=== PATIENT | male | born 1975 | race Caucasian/White ===

== ENCOUNTER 2022-09-07 08:24 | Observation (INO) | payer OTHER, SELFPAY ==
[2022-09-07] VITALS (17 sets, daily range): BP systolic 91–163; BP diastolic 63–96; PULSE 50–70; RESP 11–18; TEMP 36.1–36.6; O2SAT 90–97; BMI 31.3
--- NOTE | 2022-09-07 08:37 | ECG_ITS ---
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 Measurements Intervals [place] Rate: 62 P: 57 LA: 171 QRS: 55 QRSD: 107 T: 36 QT: 433 QTc: 443 Interpretive Statements SINUS RHYTHM POSSIBLE LEFT ATRIAL ENLARGEMENT [-0.1mV P-WAVE IN V1/V2] No previous ECG available for comparison Electronically Signed On 09-07-2022 17:08:19 CDT by Sigifredo Neumann M.D. [id number] f
--- NOTE | 2022-09-07 08:47 | XR_ITS ---
WS: [id number] Portable AP upright chest, 09/07/2022 Clinical Data: chest pain Comparison: PA and lateral chest, 03/29/2019. Findings: No nodules, masses or effusions are seen. The heart is likely enlarged. The pulmonary vascu larity is not increased. No pneumonia or pneumothorax is seen. XR/XR chest 1V portable [id number] Impression: Cardiomegaly.
[2022-09-07 09:28] LABS: Basophils # 0.1 10^3/uL (0.0-0.1); Basophils % 0.7 %; Eosinophils # 0.4 10^3/uL (0.0-0.8); Eosinophils % 4.4 %; Hematocrit 46.2 % (42.0-52.0); Hemoglobin 15.2 g/dL (11.7-16.6); Lymphocytes # 1.1 10^3/uL (0.8-4.8); Lymphocytes % 12.5 %; Mean Corpuscular HGB Conc 32.9 g/dL (30.0-36.0); Mean Corpuscular Hemoglobin 28.5 pg (28.0-34.0); Mean Corpuscular Volume 86.7 fl (80-94); Mean Platelet Volume 9.9 fL (7.4-10.4); Monocytes # 0.8 10^3/uL (0.2-0.9); Monocytes % 8.9 %; Neutrophils # 6.46 10^3/uL (1.8-7.7); Neutrophils % 73.4 %; Nucleated Red Blood Cells % 0 %; Platelet Count 240 10^3/cmm (130-400); Red Blood Count 5.33 10^6/uL (4.1-5.3); Red Cell Distribution Width 14.1 % (12.1-15.1); White Blood Count 8.8 10^3/uL (4.0-10.0)
--- NOTE | 2022-09-07 09:32 | CT_ITS ---
WS: [id number] CT ABDOMEN AND PELVIS NONCONTRAST HISTORY: Abdominal pain TECHNIQUE: Imaging performed through the abdomen and pelvis. Coronal and sagittal reformats are submi tted. All CT scans at [facility] use at least one of these dose optimization techniques: auto mated exposure control; mA and/or kV adjustment per patient size (includes targeted exams where dose is matched to clinical indication); or iterative reconstruction. DLP: 825.28 mGy.cm COMPARISON: None available. Lower thorax: Dependent changes at the lung bases. Pericardial cyst adjacent to the RIGHT heart measu res 6.0 x 2.2 cm. Normal size heart. Small hiatal hernia. Liver: Normal size liver. No mass or bile duct dilatation. Gallbladder: Abnormal gallbladder. Gallbladder is contracted with wall thickening and a small amount of pericholecystic edema. Measures up to 6 mm. No bile duct dilatation. No stones are identified by C T. Normal bile duct. Pancreas: Normal size and attenuation. Normal pancreatic duct. No pancreatitis or mass. Spleen: Normal size spleen. Calcification along the lateral margin of the spleen. Adrenal glands: Normal. No mass. Right kidney: Normal size kidney with no mass or hydronephrosis. Left kidney: Normal size kidney. Nonobstructing 2 mm calcification lower pole. Aorta: Normal abdominal aorta, no aneurysm or atherosclerosis. Retroaortic LEFT renal vein. No free fluid, intraperitoneal air or significant lymphadenopathy. GI tract: Normal noncontrast imaging of the stomach, small bowel and colon. No obstruction or wall th ickening. Normal appendix. Abdominal wall: Small umbilical hernia contains fat only. Pelvis: Patent inguinal canals. No mass. Scattered prostate calcifications. Osseous structures: Unremarkable. CT/CT abdomen pelvis wo con [id number] IMPRESSION: 1. Contracted gallbladder with wall thickening. Findings are very suspicious f or acute cholecystitis. No bile duct dilatation. Recommend follow-up with RIGHT upper quadrant ultrasound. 2. Normal appendix. 3. Pericardial cyst, benign.
--- NOTE | 2022-09-07 09:35 | ED_ITS ---
HPI - Abdominal Pain General: Chief Complaint: Abdominal Pain Stated Complaint: chest pain Time Seen by Provider: 09/07/22 08:35 Source: patient Mode of arrival: ambulatory History of Present Illness: 47-year-old male who presents to the emergency room with a chief complaint of epigastric pain. Is worse when he eats or drinks been going on intermittently for the last couple of days no hematochezia melena hematemesis or coffee-ground emesis. He is not currently taking any medications for his stomach. Describes pain in the epigastric area radiating to both upper quadrants. MD elicited complaint: abdominal pain Onset (ago): day(s) Pain Consistency: intermittent Location: Epigastric Severity: moderate Quality: cramping Radiation: LUQ and RUQ Exacerbating factors: nothing Relieving factors: nothing Associated Symptoms: Reports bloating and GI cramping; Denies no associated symptoms, anorexia, belching, change in bowel habits, change in stool character, chills, coffee ground emesis, constipation, diarrhea, dyspepsia, dysuria, excessive flatus, fever(s), heartburn, hematochezia, hematuria, hematemesis, fecal incontinence, loose stools, melena, nausea, poor appetite, syncope, vomiting and other Review of Systems Const: Denies: fever(s) or chills ENMT: Denies: throat pain, ear or mastoid pain, nasal discharge or nasal congestion Card: Denies: syncope Resp: Denies: dyspnea, productive cough or non-productive cough GI: Reports: bloating and GI cramping; Denies: nausea, vomiting, hematemesis, coffee ground emesis, heartburn, diarrhea, constipation, belching, excessive flatus, fecal incontinence, change in bowel habits, change in stool character, hematochezia, melena or other : Denies: dysuria or hematuria Skin/Breast: Denies: rash or pruritus PFSH ED PFSH: Medical History Psychiatric care Physical Exam Const: GENERAL APPEARANCE: cooperative and comfortable ORIENTATION/CONSCIOUSNESS: Yes awake, Yes oriented to person, Yes oriented to place and Yes oriented to time HENMT: COMMON NORMALS: normocephalic, atraumatic and hearing grossly normal bilaterally HEAD & SCALP: normocephalic and atraumatic Resp: COMMON NORMALS: normal respiratory effort, No retractions, No use of accessory muscles and clear to auscultation bilaterally AUSCULTATION: clear to auscultation bilaterally Cardio: COMMON NORMALS: regular rate, regular rhythm and No murmurs present (Cardio) RATE: regular rate RHYTHM: regular rhythm GI: COMMON NORMALS: No hepatosplenomegaly present AUSCULTATION: Yes normoactive bowel sounds PALPATION: Yes Tenderness to palpation present (GI) (Epigastric), No Guarding due to palpation present (GI) and Yes No hepatosplenomegaly present Extremity: COMMON NORMALS: normal to inspection, capillary refill normal, no clubbing, cyanosis or edema, no calf tenderness and no pedal edema Neuro: SENSORIUM/ORIENTATION: Yes oriented to person, Yes oriented to place and Yes oriented to time Skin: COMMON NORMALS: no rashes or lesions noted GENERAL SKIN EXAM: no rashes or lesions noted Course Vital Signs: Vital signs: Vital Signs Temperature 97.7 F 09/07/22 08:34 Pulse Rate 51 L 09/07/22 09:52 Respiratory Rate 18 09/07/22 09:52 Blood Pressure 129/91 09/07/22 09:52 Pulse Oximetry 96 09/07/22 09:52 Oxygen Delivery Me thod Room Air 09/07/22 09:52 MDM - Abdominal Pain Medical Decision Making Acute cholecystitis on ultrasound with elevation liver enzymes normal common bile duct normal T. bili. Discussed with surgery will admit we will see and evaluate patient. Medical Records I reviewed the patient's medical records. Lab Data I reviewed the patient's lab results. 09/07/22 08:45 09/07/22 08:45 Labs/Radiology: Radiology Impressions Chest X-Ray 09/07/22 08:47 Impression: Cardiomegaly. Abdomen/Pelvis CT 09/07/22 09:32 IMPRESSION: 1. Contracted gallbladder with wall thickening. Findings are very suspicious for acute cholecystitis. No bile duct dilatation. Recommend follow-up with RIGHT upper quadrant ultrasound. 2. Normal appendix. 3. Pericardial cyst, benign. Gallbladder Ultrasound 09/07/22 10:33 IMPRESSION: 1. Abnormal gallbladder with stones and diffuse wall thickening. No pericholecystic fluid. Recommend surgical evaluation for removal. 2. No bile duct dilatation. Laboratory Results WBC 8.8 10^3/uL (4.0-10.0) 09/07/22 08:45 RBC 5.33 10^6/uL (4.1-5.3) H 09/07/22 08:45 Hgb 15.2 g/dL (11.7-16.6) 09/07/22 08:45 Hct 46.2 % (42.0-52.0) 09/07/22 08:45 MCV 86.7 fl (80-94) 09/07/22 08:45 MCH 28.5 pg (28.0-34.0) 09/07/22 08:45 MCHC 32.9 g/dL (30.0-36.0) 09/07/22 08:45 RDW 14.1 % (12.1-15.1) 09/07/22 08:45 Plt Count 240 10^3/cmm (130-400) 09/07/22 08:45 MPV 9.9 fL (7.4-10.4) 09/07/22 08:45 Neut % (Auto) 73.4 % 09/07/22 08:45 Lymph % (Auto) 12.5 % 09/07/22 08:45 [place] % (Auto) 8.9 % 09/07/22 08:45 Eos % (Auto) 4.4 % 09/07/22 08:45 Baso % (Auto) 0.7 % 09/07/22 08:45 Neut # (Auto) 6.46 10^3/uL (1.8-7.7) 09/07/22 08:45 Lymph # (Auto) 1.1 10^3/uL (0.8-4.8) 09/07/22 08:45 [place]vert # (Auto) 0.8 10^3/uL (0.2-0.9) 09/07/22 08:45 Eos # (Auto) 0.4 10^3/uL (0.0-0.8) 09/07/22 08:45 Baso # (Auto) 0.1 10^3/uL (0.0-0.1) 09/07/22 08:45 Nucleated RBC % (auto) 0 % 09/07/22 08:45 Nucleated RBCs # 0.0 /100WBC 09/07/22 08:45 Sodium 135 mmol/L (136-145) L 09/07/22 08:45 Potassium 3.9 mmol/L (3.5-5.1) 09/07/22 08:45 Chloride 100 mmol/L (98-107) 09/07/22 08:45 Carbon Dioxide 25 mmol/L (22-29) 09/07/22 08:45 Anion Gap 13.9 (5-19) 09/07/22 08:45 BUN 11 mg/dL (6-20) 09/07/22 08:45 Creatinine 0.9 mg/dL (0.7-1.2) 09/07/22 08:45 GFR Calculation 90.8 mL/min (90-130) 09/07/22 08:45 Glucose 114 mg/dL (65-115) 09/07/22 08:45 Calculated Osmolality 280 mOsm/kg (285-295) L 09/07/22 08:45 Calcium 9.1 mg/dL (8.5-10.5) 09/07/22 08:45 Total Bilirubin 1.1 mg/dL (0.15-1.2) 09/07/22 08:45 AST 189 U/L (0-40) H 09/07/22 08:45 ALT 138 U/L (0-41) H 09/07/22 08:45 Alkaline Phosphatase 156 U/L (40-130) H 09/07/22 08:45 Troponin T Baseline 6 ng/L (0-15) 09/07/22 08:45 Troponin T 120 Minute 6.00 ng/L (0-15) 09/07/22 11:17 Total Protein 7.2 g/dL (6.6-8.7) 09/07/22 08:45 Albumin 4.8 g/dL (3.5-5.2) 09/07/22 08:45 Globulin 2.4 g/dL (1.3-4.6) 09/07/22 08:45 Discharge Plan Discharge Patient Disposition: Admitted As Inpatient Clinical Impression: Acute cholecystitis Condition: Stable Referrals: Trudy Pedroza MD [Primary Care Provider] - Coding Level of Care Code ED Equipment Lead for Kassandra Betancourt
[2022-09-07] MEDS: aspirin 81 mg Chew Tablet 324 MG PO (09:44)
[2022-09-07 09:46] LABS: Alanine Aminotransferase 138 U/L (0-41); Albumin Level 4.8 g/dL (3.5-5.2); Alkaline Phosphatase 156 U/L (40-130); Anion Gap 13.9 (5-19); Aspartate Amino Transferase 189 U/L (0-40); Blood Urea Nitrogen 11 mg/dL (6-20); Calcium 9.1 mg/dL (8.5-10.5); Carbon Dioxide 25 mmol/L (22-29); Chloride 100 mmol/L (98-107); Globulin 2.4 g/dL (1.3-4.6); Glomerular Filtration Rate 90.8 mL/min (90-130); Glucose 114 mg/dL (65-115); Osmolality Calculated 280 mOsm/kg (285-295); Potassium 3.9 mmol/L (3.5-5.1); Sodium 135 mmol/L (136-145); Total Bilirubin 1.1 mg/dL (0.15-1.2); Total Protein 7.2 g/dL (6.6-8.7)
[2022-09-07] MEDS: pantoprazole 40 mg SDV IVP (09:46)
[2022-09-07 09:47] LABS: Troponin(5th) Baseline 6 ng/L (0-15)
[2022-09-07] MEDS: lidocaine 2% viscous 15 ML, aluminum-mag hydrox-simethicon 30 ML, sucralfate oral liq 1 GM PO (09:47)
--- NOTE | 2022-09-07 10:33 | US_ITS ---
WS: [id number] RIGHT UPPER QUADRANT ULTRASOUND HISTORY: elevated LFTs COMPARISON: CT 09/07/2022. Liver: 16.2 cm in length. Normal size liver and echogenicity. No bile duct dilatation or mass. Portal Vein: Normal hepatopetal flow with monophasic waveform. Gallbladder: Abnormal gallbladder. Gallbladder is contracted with diffuse wall thickening measuring u p to 6 mm. No pericholecystic fluid. There are numerous stones with shadowing in the gallbladder. CBD: 0.3 cm Pancreas: Normal size and echogenicity. Right kidney: 11.5 cm in length. Normal size and echogenicity. No hydronephrosis or mass. Aorta and IVC: Unremarkable abdominal aorta and IVC. No ascites. US/US gall bladder [id number] IMPRESSION: 1. Abnormal gallbladder with stones and diffuse wall thickening. No pericholec ystic fluid. Recommend surgical evaluation for removal. 2. No bile duct dilatation.
--- NOTE | 2022-09-07 11:18 | ECG_ITS ---
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 Measurements Intervals [place] Rate: 62 P: 59 NE: 177 QRS: 84 QRSD: 111 T: 34 QT: 430 QTc: 438 Interpretive Statements SINUS RHYTHM INCOMPLETE RIGHT BUNDLE BRANCH BLOCK [90+ ms QRS DURATION, TERMINAL R IN V1/V2, 40+ ms S IN I/aVL/V4/V5/V6] Compared to ECG 09/07/2022 08:37:14 Incomplete right bundle-branch block now present Electronically Signed On 09-07-2022 17:11:58 CDT by Sigifredo Neumann M.D. [id number]
[2022-09-07] MEDS: piperacillin-tazobactam 3.375 GM in sodium chloride 0.9% (plus) 50 ML IV (11:19)
[2022-09-07] MEDS: sodium chloride 0.9% 1,000 ML 999 ML IV (11:19)
[2022-09-07] MEDS: morphine 4 mg/mL SDV 1 mL IVP ×3 (11:19→19:27)
--- NOTE | 2022-09-07 12:38 | P.HP_ITS ---
Providers/Chief Complaint Primary Care Provider: Trudy Pedroza MD Chief Complaint: chest pain History of Present Illness Dereck Cruz is a 47 year old male who presents to the emergency room with a 2-day history of epigastric abdominal pain. He reports that he had biscuit eggs and coffee before he started work at 6 AM this morning. Then his pain became severe and he had 1 episode of emesis. He denies any hematemesis. The pain is sharp and constant and radiates to the back. Palpation makes pain worse. Nothing makes pain better. Denies any diarrhea or constipation. He has never had surgery on his abdomen. Work-up in the ER included a CT abdomen pelvis and a gallbladder ultrasound which showed thickening of the gallbladder wall and cholelithiasis. Common bile duct was within normal limits. Review of Systems General: Reports: 10 or more systems reviewed and unremarkable except in HPI and below PFSH Acute PFSH: Medical History Psychiatric care Vitals/I&O/Wt Last Vital Signs Temp 97.7 F 09/07/22 08:34 Pulse 51 L 09/07/22 09:52 Resp 18 09/07/22 09:52 BP 129/91 09/07/22 09:52 Pulse Ox 96 09/07/22 09:52 O2 Del Method Room Air 09/07/22 09:52 Weight last 48 hrs Weight 200 lb Physical Exam Narrative: General : Patient is well developed , no acute distress, oriented x3 Head : Normal cephalic, a-traumatic. Ears : Pinnae and external canal are normal. Hearing is normal. Eyes : PERRLA, Sclera and injection are normal. No conjunctival discharge. Nose : Mucous membranes are without erythema. Throat : buccal mucosa is normal, gums are without significant recession or hypertrophy. Lungs : Equal chest rise bilaterally, no use of accessory muscles, trachea is midline. Cor : Rate and rhythm are normal. Abdomen : Soft, ND, tender to palpation right upper quadrant, negative Segura's, no g/r/m Extremities : No edema, no cyanosis or clubbing, dorsalis pedis pulses are present bilaterally, non-tender to palpation of calves. Upper extremities are normal bilaterally. Back : non-tender to palpation, no CVA tenderness. Neuro : CN II - XII intact, Upper and lower extremities have equal and full st rength Data 09/07/22 08:45 09/07/22 08:45 A&P Assessment and plan (1) Acute calculous cholecystitis: Plan Laparoscopic cholecystectomy The risks and benefits of the procedure, including but not limited to, bleeding, infection, scar, numbness, pain, damage to surrounding structures, damage to common bile duct requiring additional surgery, conversion to an open procedure, were explained to the patient. He is understanding of the risks and wishes to proceed. Attestations Medical Necessity Statement*: Patient requires 1 night in the hospital for recovery after laparoscopic cholecystectomy for acute calculus cholecystitis Coding Level of Care Code Acute Code for Chg Fwd Diagnoses Acute calculous cholecystitis K80.00
[2022-09-07 12:45] LABS: Troponin 5 2HR Delta 0 ABS# (0-10)
--- NOTE | 2022-09-07 13:38 | P.ANESASSM_ITS ---
Pre-Anesthetic Assessment Height/Weight: Height 1.7 m Weight 90.718 kg Temp Pulse Resp BP Pulse Ox O2 Del Method 97.7 F 51 L 18 129/91 96 Room Air 09/07/22 08:34 09/07/22 09:52 09/07/22 09:52 09/07/22 09:52 09/07/22 09:52 09/07/22 09:52 Preop Diagnosis: Acute cholelithiasis Operation Date: 09/07/22 14:10 Proposed Procedures p Laparoscopic Cholecystectomy(Not Applicable) - Christopher Brown DO Familial anesthetic complications: none Was Beta Peter taken within 24 hours: N/A Was Clonidine taken within 24 hours: N/A Last intake: Intake Last Liquid Date 09/07/22 Last Liquid Time 06:00 Last Solid Date 09/07/22 Last Solid Time 05:45 Social Alcohol and No tobacco Exam alert, oriented x 3, clear to auscultation bilaterally and regular rate & rhythm Airway Submandibular: within normal limits Cervical ROM: within normal limits Mallampati: Class III Dentition: full Comments: Comments: dias Pulmonary None reported CV/HEM Hypertension None reported Hepatic None reported GI None reported Metabolic Hyperlipidemia, Morbid Obesity and Thyroid Disease [facility] [place] None reported Neuropsych Anxiety Anesthetic Plan ASA status: 3 Anesthesia: General Medications/Allergies Home Medications Medication Instructions Recorded Confirmed Last Taken Type amlodipine 10 mg tablet 10 mg PO DAILY 09/07/22 09/07/22 09/07/22 History hydroxyzine HCl 10 mg tablet 10 - 20 mg PO QID PRN Anxiety 09/07/22 09/07/22 09/07/22 History levothyroxine 50 mcg tablet 50 mcg PO DAILY 09/07/22 09/07/22 09/07/22 History losartan 50 mg tablet 50 mg PO DAILY 09/07/22 09/07/22 09/07/22 History sertraline 100 mg tablet 100 mg PO DAILY 09/07/22 09/07/22 09/07/22 History Allergies Allergy/AdvReac Type Severity Reaction Status Date / Time famotidine [From Pepcid] Allergy ALGY-Rash Verified 09/07/22 13:29 [facility] Anesthesia Medical History Psychiatric care Data Anesthesia 09/07/22 08:45 09/07/22 08:45 Short CBC 09/07/22 Range/Units 08:45 WBC 8.8 (4.0-10.0) 10^3/uL Hgb 15.2 (11.7-16.6) g/dL Hct 46.2 (42.0-52.0) % MCV 86.7 (80-94) fl Plt Count 240 (130-400) 10^3/cmm Neut % (Auto) 73.4 % Neut # (Auto) 6.46 (1.8-7.7) 10^3/uL BMP 09/07/22 08:45 Sodium 135 L Potassium 3.9 Chloride 100 Carbon Dioxide 25 BUN 11 Creatinine 0.9 Glucose 114 Calcium 9.1 Cardiac Enzymes 09/07/22 09/07/22 Range/Units 08:45 11:17 Troponin T Baseline 6 (0-15) ng/L Troponin T 120 Minute 6.00 (0-15) ng/L Delta Troponin T 0 (0-10) ABS# Liver Function 09/07/22 Range/Units 08:45 Total Bilirubin 1.1 (0.15-1.2) mg/dL AST 189 H (0-40) U/L ALT 138 H (0-41) U/L Alkaline Phosphatase 156 H (40-130) U/L Albumin 4.8 (3.5-5.2) g/dL Cardiac Studies: No Data to Display
[2022-09-07] MEDS: sodium chloride 0.9% 1,000 ML 30 ML IV (13:44)
[2022-09-07] MEDS: lidocaine-epi 2% 20 mL INJ INJECTION (14:30)
--- NOTE | 2022-09-07 14:50 | P.OP_ITS ---
Operative Report Date of procedure: September 07, 2022 Pre-op diagnosis: Preop Diagnosis Acute calculous cholelithiasis Post-op diagnosis: same Procedure done: Laparoscopic cholecystectomy Implants: Surgicel Specimens removed/disposition: Gallbladder Surgeon: Dr. Christopher Brown DO Anesthesia: General Estimated blood loss (mL): 5 Complications: None apparent Brief History: This is a very pleasant 47-year-old gentleman who presents to the ER with acute calculus cholecystitis. Laparoscopic cholecystectomy was indicated. The risk and benefits were explained and documented. Procedure: Patient was wheeled into the operative room and placed on the OR table in a supine position. Abdomen was inspected prepped and draped in usual sterile fashion. Time-out was performed and all present were in agreement. A 15 blade scalp was used to make a stab incision in the left upper quadrant and intra- abdominal insufflation was achieved using a Veress needle. After localizing the tissue incisions were made and a 5 millimeter trocar was placed into the umbilicus as well as 2 in the right upper quadrant. A 12 millimeter trocar was placed in the epigastrium. Gallbladder was grasped and elevated. The triangle of Calot was carefully dissected using blunt dissection and electrocautery until the triangle of Calot clearly identified. The cystic duct was clipped proximally and double clipped distally. The duct was then ligated proximally. The cystic artery was doubly clipped and ligated. The gallbladder was then removed from the liver bed using electrocautery. The gallbladder was removed from the abdomen using an Endo-Catch bag through the epigastric incision. The liver bed was inspected and there was some spot bleeding that was controlled with electrocautery. A piece of Surgicel was placed over the raymundo hepatis and liver bed. The abdomen was irrigated and suctioned. All ports removed. Skin was washed and dried. Incisions were closed with 4-0 Monocryl in a subcuticular interrupted fashion. Skin glue was applied. Patient tolerated the procedure well.
[2022-09-07] MEDS: ondansetron 2 mg/ML SDV 2 mL 4 MG IVP ×2 (15:31→16:01)
--- NOTE | 2022-09-07 15:50 | ANE.PACU2 ---
Inpatient post-anesthesia follow up: Airway intact: Yes Vital signs: Temperature 97.0 F Pulse Rate 50 Respiratory Rate 16 Blood Pressure 98/67 Pulse Oximetry 91 Oxygen Delivery Me thod Room Air Oxygen Flow Rate 6 Fraction of Inspir ed Oxygen Hydration adequate: Yes Nausea and vomiting: No Pain level: 3 Mental status: Baseline
--- NOTE | 2022-09-07 16:01 | PC.NURSE ---
gave py 12.5mg of benadryl fro nausea at approx. 1555
--- NOTE | 2022-09-07 16:39 | ECG_ITS ---
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 Measurements Intervals [place] Rate: 58 P: 66 CT: 168 QRS: 98 QRSD: 106 T: 50 QT: 479 QTc: 471 Interpretive Statements SINUS BRADYCARDIA BORDERLINE RIGHT AXIS DEVIATION [QRS AXIS > 90] PROLONGED QT INTERVAL Compared to ECG 09/07/2022 11:18:27 Prolonged QT interval now present Sinus rhythm no longer present Incomplete right bundle-branch block no longer present Electronically Signed On 09-07-2022 17:09:12 CDT by Sigifredo Neumann M.D. [id number]
[2022-09-07] MEDS: sodium chloride 0.9% 1,000 ML 100 ML IV (18:18)
[2022-09-07 19:21] LABS: Troponin 5 6HR Delta 0 ng/L (0-12)
[2022-09-07] MEDS: oxyCODONE-APAP 5-325 mg Tablet 1 TAB PO (23:37)
[2022-09-07] MEDS: ceFAZolin 2,000 MG in sodium chloride 0.9% (plus) 50 ML 100 MG IV (23:37)
[2022-09-08] VITALS (9 sets, daily range): BP systolic 124–139; BP diastolic 77–85; PULSE 64–70; RESP 16–18; TEMP 36.5–36.7; O2SAT 90–95
[2022-09-08] MEDS: sodium chloride 0.9% 1,000 ML 30 ML IV (01:38)
[2022-09-08] MEDS: sodium chloride 0.9% 1,000 ML 100 ML IV (03:44)
[2022-09-08 06:06] LABS: Blood Urea Nitrogen 11 mg/dL (6-20); Carbon Dioxide 18 mmol/L (22-29); Chloride 107 mmol/L (98-107); Creatinine Clr Calc Pharmacy 99.1533; Glomerular Filtration Rate 80.4 mL/min (90-130); Glucose 104 mg/dL (65-115); Osmolality Calculated 280 mOsm/kg (285-295); Sodium 135 mmol/L (136-145)
[2022-09-08 06:07] LABS: Anion Gap 14.3 (5-19); Potassium 4.3 mmol/L (3.5-5.1)
[2022-09-08] MEDS: heparin 5,000 unit/mL INJ 1 mL 5000 UNIT SUBCUT (06:12)
[2022-09-08] MEDS: oxyCODONE-APAP 5-325 mg Tablet 1 TAB PO ×3 (06:16→14:38)
[2022-09-08 07:14] LABS: Basophils % 0.2 %; Eosinophils # 0.1 10^3/uL (0.0-0.8); Eosinophils % 0.7 %; Hemoglobin 13.9 g/dL (11.7-16.6); Lymphocytes # 1.7 10^3/uL (0.8-4.8); Lymphocytes % 12.8 %; Mean Corpuscular HGB Conc 32.3 g/dL (30.0-36.0); Mean Corpuscular Hemoglobin 29.7 pg (28.0-34.0); Mean Corpuscular Volume 91.9 fl (80-94); Mean Platelet Volume 9.4 fL (7.4-10.4); Monocytes # 0.8 10^3/uL (0.2-0.9); Monocytes % 6.1 %; Neutrophils # 10.55 10^3/uL (1.8-7.7); Neutrophils % 79.8 %; Nucleated Red Blood Cells % 0 %; Platelet Count 244 10^3/cmm (130-400); Red Blood Count 4.68 10^6/uL (4.1-5.3); Red Cell Distribution Width 14.7 % (12.1-15.1); White Blood Count 13.2 10^3/uL (4.0-10.0)
[2022-09-08] MEDS: ceFAZolin 2,000 MG in sodium chloride 0.9% (plus) 50 ML 100 MG IV (08:13)
[2022-09-08] MEDS: sertraline 100 mg Tablet PO (08:15)
[2022-09-08] MEDS: amlodipine 10 mg Tablet PO (08:15)
[2022-09-08] MEDS: levothyroxine 50 mcg Tablet PO (08:15)
[2022-09-08] MEDS: losartan 50 mg Tablet PO (08:15)
--- NOTE | 2022-09-08 10:40 | PC.CHAP ---
Pastoral Care Encounter/Spiritual Assessment Type of Contact [] Declined oracle applications developer visit [] Patient/Family/Request visit [] Outpatient visit [] Follow-up visit [] Physician referral [] Code/Alert [x] Routine visit [] Staff referral [] Actively dying [] Patient sleeping [] Family support [] [] Out of room [] Palliative care [] [] Receiving care in room [] Pre-surgical visit [] Trauma [] Long length of stay [] ICU visit [] Other: Relational/Emotional Strength [x] Patient feels connected with others/family/visitors/staff [] Distress [] Loneliness/isolation [] Abandonment Spirituality of Patient [x] Person of Wanda [] Attends Evangelical of their Wanda [x] Believes in Prayer [] Reads Bible or Jewish materials [] There are Spiritual issues to be addressed Meter Repairer Helper Interventions [x] Prayer [x] Active listening [] Non-anxious presence x[] Spiritual/emotional support [] Crisis/trauma care [] Spiritual counseling [] Bereavement support [] Provided bereavement packet [] Provided Bible/devotional materials [] Provided toy/stuffed animal, coloring book to patient or family member [] Provided Communion [] Anointing/[place] [] Salvation [] Completed spiritual assessment [] Other: Impact on Illness or Injury [] Angry [] Fearful [] Anxious [] Often cries [] Exhaustion [] Unable to work [] Unable to attend zoroastrianism [] Unable to walk/stand [] Unable to read [] Unable to drive [] Unable to eat/drink [] Unable to sleep [] Unable to be with family [] Patient intubated [] Other: Summary Time spent with patient 5 min
[2022-09-08 15:17] LABS: Basophils # 0.1 10^3/uL (0.0-0.1); Basophils % 0.5 %; Eosinophils # 0.4 10^3/uL (0.0-0.8); Eosinophils % 3.1 %; Hematocrit 42.6 % (42.0-52.0); Hemoglobin 13.7 g/dL (11.7-16.6); Lymphocytes # 2.4 10^3/uL (0.8-4.8); Lymphocytes % 20.3 %; Mean Corpuscular HGB Conc 32.2 g/dL (30.0-36.0); Mean Corpuscular Hemoglobin 28.9 pg (28.0-34.0); Mean Corpuscular Volume 89.9 fl (80-94); Mean Platelet Volume 9.6 fL (7.4-10.4); Monocytes # 0.7 10^3/uL (0.2-0.9); Neutrophils # 8.18 10^3/uL (1.8-7.7); Neutrophils % 69.8 %; Nucleated Red Blood Cells % 0 %; Platelet Count 245 10^3/cmm (130-400); Red Blood Count 4.74 10^6/uL (4.1-5.3); Red Cell Distribution Width 14.6 % (12.1-15.1); White Blood Count 11.7 10^3/uL (4.0-10.0)
--- NOTE | 2022-09-08 15:48 | PM.DCS ---
Discharge Providers Date of Admission: 09/07/22 15:05 Date of Discharge: September 08, 2022 Attending Provider at Admission: Christopher Brown DO Attending Provider at Discharge: Christopher Brown DO Primary Care Provider: Trudy Pedroza MD Diagnoses at Discharge Discharge Diagnosis (1) Acute calculous cholecystitis: Status: Acute Reason for Visit Reason for Visit: chest pain Hospital Course Hospital Course This is a very pleasant 47-year-old gentleman who came in with abdominal pain and was diagnosed with cholecystitis. He underwent a laparoscopic cholecystectomy and was discharged home in good condition in the next day. Physical Exam Narrative: General : Patient is well developed , no acute distress, oriented x3 Head : Normal cephalic, a-traumatic. Ears : Pinnae and external canal are normal. Hearing is normal. Eyes : PERRLA, Sclera and injection are normal. No conjunctival discharge. Nose : Mucous membranes are without erythema. Throat : buccal mucosa is normal, gums are without significant recession or hypertrophy. Lungs : Equal chest rise bilaterally, no use of accessory muscles, trachea is midline. Cor : Rate and rhythm are normal. Abdomen : Soft, ND, appropriately tender, no guarding rebound or masses Incisions intact without erythema or exudate Extremities : No edema, no cyanosis or clubbing, dorsalis pedis pulses are present bilaterally, non-tender to palpation of calves. Upper extremities are normal bilaterally. Back : non-tender to palpation, no CVA tenderness. Neuro : CN II - XII intact, Upper and lower extremities have equal and full strength Discharge Data Studies Completed and Pending Completed Studies During Hospitalization Category Date Time Status CT abdomen pelvis wo con [id number] Stat Cat Scan 09/07/22 09:32 Completed XR chest 1V portable [id number] Stat Exams 09/07/22 08:47 Completed US gall bladder [id number] Stat Ultrasound 09/07/22 10:33 Completed Pending at discharge Category Date Time Status Basic Metabolic Panel AM LABS Lab 09/09/22 04:00 Ordered Basic Metabolic Panel AM LABS Lab 09/10/22 04:00 Ordered Complete Blood Count w/Auto AM LABS Lab 09/09/22 04:00 Ordered Complete Blood Count w/Auto AM LABS Lab 09/10/22 04:00 Ordered Pathology: Surgical [PTH] Routine Pth 09/07/22 15:10 Received Radiology Impressions Chest X-Ray 09/07/22 08:47 Impression: Cardiomegaly. Abdomen/Pelvis CT 09/07/22 09:32 IMPRESSION: 1. Contracted gallbladder with wall thickening. Findings are very suspicious for acute cholecystitis. No bile duct dilatation. Recommend follow-up with RIGHT upper quadrant ultrasound. 2. Normal appendix. 3. Pericardial cyst, benign. Gallbladder Ultrasound 09/07/22 10:33 IMPRESSION: 1. Abnormal gallbladder with stones and diffuse wall thickening. No pericholecystic fluid. Recommend surgical evaluation for removal. 2. No bile duct dilatation. Laboratory Results WBC 11.7 10^3/uL (4.0-10.0) H 09/08/22 15:03 Corrected WBC Cancelled 09/08/22 05:34 RBC 4.74 10^6/uL (4.1-5.3) 09/08/22 15:03 Hgb 13.7 g/dL (11.7-16.6) 09/08/22 15:03 Hct 42.6 % (42.0-52.0) 09/08/22 15:03 MCV 89.9 fl (80-94) 09/08/22 15:03 MCH 28.9 pg (28.0-34.0) 09/08/22 15:03 MCHC 32.2 g/dL (30.0-36.0) 09/08/22 15:03 RDW 14.6 % (12.1-15.1) 09/08/22 15:03 Plt Count 245 10^3/cmm (130-400) 09/08/22 15:03 MPV 9.6 fL (7.4-10.4) 09/08/22 15:03 Gran % Cancelled 09/08/22 05:34 Neut % (Auto) 69.8 % 09/08/22 15:03 Lymph % (Auto) 20.3 % 09/08/22 15:03 [place] % (Auto) 6.0 % 09/08/22 15:03 Eos % (Auto) 3.1 % 09/08/22 15:03 Baso % (Auto) 0.5 % 09/08/22 15:03 Neut # (Auto) 8.18 10^3/uL (1.8-7.7) H 09/08/22 15:03 Lymph # (Auto) 2.4 10^3/uL (0.8-4.8) 09/08/22 15:03 [place] # (Auto) 0.7 10^3/uL (0.2-0.9) 09/08/22 15:03 Eos # (Auto) 0.4 10^3/uL (0.0-0.8) 09/08/22 15:03 Baso # (Auto) 0.1 10^3/uL (0.0-0.1) 09/08/22 15:03 Absolute Gran (auto) Cancelled 09/08/22 05:34 Nucleated RBC % (auto) 0 % 09/08/22 15:03 Nucleated RBCs # 0.0 /100WBC 09/08/22 15:03 Sodium 135 mmol/L (136-145) L 09/08/22 05:34 Potassium 4.3 mmol/L (3.5-5.1) 09/08/22 05:34 Chloride 107 mmol/L (98-107) 09/08/22 05:34 Carbon Dioxide 18 mmol/L (22-29) L 09/08/22 05:34 Anion Gap 14.3 (5-19) 09/08/22 05:34 BUN 11 mg/dL (6-20) 09/08/22 05:34 Creatinine 1.0 mg/dL (0.7-1.2) 09/08/22 05:34 GFR Calculation 80.4 mL/min (90-130) L 09/08/22 05:34 Glucose 104 mg/dL (65-115) 09/08/22 05:34 Calculated Osmolality 280 mOsm/kg (285-295) L 09/08/22 05:34 Calcium 8.0 mg/dL (8.5-10.5) L 09/08/22 05:34 Total Bilirubin 1.1 mg/dL (0.15-1.2) 09/07/22 08:45 AST 189 U/L (0-40) H 09/07/22 08:45 ALT 138 U/L (0-41) H 09/07/22 08:45 Alkaline Phosphatase 156 U/L (40-130) H 09/07/22 08:45 Troponin T Baseline 6 ng/L (0-15) 09/07/22 08:45 Troponin T 120 Minute 6.00 ng/L (0-15) 09/07/22 11:17 Delta Troponin T 0 ABS# (0-10) 09/07/22 11:17 Troponin T Hi Sens 6Hr 6.00 ng/L (0-15) 09/07/22 18:03 Troponin T Hi Sens 6Hr Delta 0 ng/L (0-12) 09/07/22 18:03 Total Protein 7.2 g/dL (6.6-8.7) 09/07/22 08:45 Albumin 4.8 g/dL (3.5-5.2) 09/07/22 08:45 Globulin 2.4 g/dL (1.3-4.6) 09/07/22 08:45 Procedures Performed Laparoscopic cholecystectomy Vitals Last Vital Signs Temp 97.9 F 09/08/22 12:42 Pulse 66 09/08/22 12:42 Resp 16 09/08/22 14:38 BP 139/81 09/08/22 12:42 Pulse Ox 90 09/08/22 12:42 O2 Del Method Room Air 09/08/22 12:42 O2 Flow Rate 6 09/07/22 15:20 Discharge Plan Discharge Patient Disposition: Home Condition: Stable Prescriptions: New oxycodone-acetaminophen 5-325 mg tablet 1 tab PO Q6H PRN (Reason: pain) Qty: 20 0RF DOK 100 mg capsule 100 mg PO BID Qty: 14 0RF amoxicillin-pot clavulanate 875-125 mg tablet 1 tab PO BID Qty: 14 0RF Continued losartan 50 mg tablet 50 mg PO DAILY sertraline 100 mg tablet 100 mg PO DAILY amlodipine 10 mg tablet 10 mg PO DAILY levothyroxine 50 mcg tablet 50 mcg PO DAILY hydroxyzine HCl 10 mg tablet 10 - 20 mg PO QID PRN (Reason: Anxiety) Discharge Orders: Discharge Order (Routine); Ordered 09/08/22 Ordered By: Christopher Brown Referrals: Trudy Pedroza MD [Primary Care Provider] - 4-7 days Christopher Brown DO [Physician] - 2 weeks Discharge Diet: Advance as tolerated Discharge Activity: Resume usual activity Patient Instructions: Opioid Safety Activity Restrictions/Additional Instructions: Do not soak incisions underwater for 2 weeks. Shower daily. Discharge Attestations Time Spent in Discharge Care*: less than 30 min Quality Metrics Clinical Quality Measures [ No reported AMI, CVA or VTE this stay] Coding Level of Care Code Acute Code for Chg Fwd Diagnoses Acute calculous cholecystitis K80.00
== END 2022-09-08 16:25 | disposition home or self-care (01) ==
LOC: ER 12:44 → OR 13:13 → MEDSURG 15:24
PROVIDERS: Admitting Provider Surgery; Emergency Provider Family Medicine; PCP Family Medicine; Visit Provider Surgery
PROC: 0FT44ZZ Resection of Gallbladder, Percutaneous Endoscopic Approach (ICD-10-PCS; CPT 47562; principal; 2022-09-07 14:00)
DX: K80.10 Calculus of gallbladder with chronic cholecystitis without obstruction (principal); E78.5 Hyperlipidemia, unspecified; I45.10 Unspecified right bundle-branch block; I45.81 Long QT syndrome; E66.01 Morbid (severe) obesity due to excess calories; Z68.31 Body mass index [BMI] 31.0-31.9, adult
CPT/HCPCS: 47562; 36415; 71045; 74176; 76705; 80048; 80053; 84484; 85025; 88304; 93005; 96361; 96372; 96374; 96375; 96376; 99285; C9113; G0378; J0330; J0690; J1100; J1644; J2250; J2270; J2405; J2543; J2704; J3010; J3490; J7030

== ENCOUNTER 2025-02-05 16:07 | Emergency (ER) | payer OTHER, SELFPAY ==
[2025-02-05 16:39] VITALS: BP 162/99; PULSE 62; RESP 18; TEMP 36.7; O2SAT 99
--- NOTE | 2025-02-05 16:51 | XRR_ITS ---
PROCEDURE INFORMATION: Exam: XR Left Hand Exam date and time: 02/05/2025 4:53 PM Age: 49 years old Clinical indication: Injury or trauma; Work related; Injury details: Open laceration to posterior of left hand, using punch hand with cutoff wheel at work when it slipped. TECHNIQUE: Imaging protocol: Radiologic exam of the left hand. Views: 3 or more views. COMPARISON: No relevant prior studies available. FINDINGS: Bones/joints: No definitive fracture or osseous defects. No dislocation. Joint spaces are within normal limits. Soft tissues: A 2 cm collection of small radiodense fragments are located in the dorsal subcutaneous soft tissues between the 3rd and 4th metacarpophalangeal joints. A few small subcutaneous fragments are also noted distally over the dorsal aspect of the 4th finger. Soft tissue irregularity indicating laceration is present in the region of the proximal 4th finger dorsally. . XR/XR hand LT min 3V* [id number] IMPRESSION: 1. Soft tissue irregularity involving the base of the 4th finger, consistent with laceration. 2. Numerous subcutaneous densities in the region of the 3rd and 4th MCP joints, likely foreign bodies. The structures have the appearance of calcification , raising concern for cortical avulsion fractures which are not otherwise noted
--- NOTE | 2025-02-05 16:51 | W.ED.UPPEXIN ---
HPI - Extremity Injury (Upper) General: Chief Complaint: Extremity Injury, Upper Stated Complaint: Workmen Comp Time Seen by Provider: 02/05/25 16:48 Source: patient Mode of arrival: ambulatory Limitations: no limitations History of Present Illness: Patient is a 49-year-old male who presents to ED today for a Worker's Comp. injury involving his left hand. He states just prior to arrival he cut the dorsum of his left hand with a sheet metal supervisor. Last tetanus is unknown. He is not complaining of any numbness, tingling, loss of sensation to the hand. He maintains full range of motion of his digits. complaint: injury to: left and hand Onset (ago): hour(s) Other Extremity Injury: Left: hand Other injuries: none Place: work Severity: moderate Relieving factors: none Exacerbating factors: none Context: laceration Associated symptoms: Reports no associated symptoms; Denies weakness in extremities Treatments prior to arrival: bandage Related Data Home Medications ?Medication ?Instructions ?Recorded ?Confirmed amlodipine 10 mg tablet 10 mg PO DAILY 09/07/22 09/22/22 hydroxyzine HCl 10 mg tablet 10 - 20 mg PO QID PRN Anxiety 09/07/22 09/22/22 levothyroxine 50 mcg tablet 50 mcg PO DAILY 09/07/22 09/22/22 losartan 50 mg tablet 50 mg PO DAILY 09/07/22 09/22/22 sertraline 100 mg tablet 100 mg PO DAILY 09/07/22 09/22/22 Previous Rx's ?Medication ?Instructions ?Recorded cephalexin 500 mg capsule 500 mg PO Q6H 7 days #28 caps 02/05/25 Allergies Allergy/AdvReac Type Severity Reaction Status Date / Time famotidine (From Pepcid) Allergy ALGY-Rash Verified 09/22/22 08:56 Review of Systems Musc: Reports: extremity pain (L hand) Skin/Breast: Reports: other (L hand laceration) Neuro: Denies: numbness in extremities, weakness in extremities or sensory changes PFS ED PFSH: Surgical History History of laparoscopic cholecystectomy Hx of eye surgery left retina Family History Denies family history of Anesthesia complication Social History Smoking and tobacco/nicotine status: never used tobacco/nicotine Alcohol intake: never Physical Exam Const: COMMON NORMALS: no acute distress, average body habitus, no limitations, healthy appearing, alert and well nourished Extremity: COMMON NORMALS: full ROM and capillary refill normal GENERAL: Yes normal exam except as noted LEFT UPPER EXTREMITY: Yes hand & digits (dorsal hand laceration) Left hand and digits: Yes inspection (dorsal hand laceration), Yes ROM (normal) and Yes neurovascular exam (normal) OTHER: large dorsal hand laceration; I can visualize extensor tendon to 3rd digit but this appears intact and he maintains full ROM of all digits against resistance; NV intact Neuro: COMMON NORMALS: moves all extremities, no focal motor deficits and no sensory deficits noted SENSORIUM/ORIENTATION: Yes alert Skin: TRAUMA: laceration Procedures Laceration Laceration 1: Site: hand Side (If applicable): left Size (cm): 6.0 Description: irregular Depth: simple, single layer Local Anesthetic: lidocaine 1% and with epi Amount of anesthesia used (mL): 3.0 Pre-repair: wound explored and irrigated extensively Skin layer closed with: nylon Size (cm): 4-0 Number of sutures: 8 Technique: simple, interrupted Course Vital Signs: Vital signs: Vital Signs Temperature 98.1 F 02/05/25 16:39 Pulse Rate 62 02/05/25 16:39 Respiratory Rate 18 02/05/25 16:39 Blood Pressure 162/99 02/05/25 16:39 Pulse Oximetry 99 02/05/25 16:39 Oxygen Delivery Me thod Room Air 02/05/25 16:39 MDM - Extremity Injury (Upper) Medical Decision Making Wound was copiously irrigated and repaired as documented. Tetanus updated. XR showing likely foreign bodies although cortical avulsion fractures could not be ruled out. No obvious tendon lacerations noted. Patient was given 1g Ancef prior to discharge and we placed on prophylactic antibiotics. We will have him follow-up with orthopedics. Medical Records I reviewed the patient's medical records. Lab Data Radiology Impressions Hand X-Ray 02/05/25 16:51 IMPRESSION: 1. Soft tissue irregularity involving the base of the 4th finger, consistent with laceration. 2. Numerous subcutaneous densities in the region of the 3rd and 4th MCP joints, likely foreign bodies. The structures have the appearance of calcification , raising concern for cortical avulsion fractures which are not otherwise noted All radiology interpretation(s) finalized by discharge Discharge Plan Discharge Patient Disposition: Home Clinical Impression: Laceration of hand, left Qualifiers: Encounter type: initial encounter Foreign body presence: with foreign body Qualified Code(s): S61.422A - Laceration with foreign body of left hand, initial encounter Condition: Stable Prescriptions: New cephalexin 500 mg capsule 500 mg PO Q6H 7 Days Qty: 28 0RF No Action losartan 50 mg tablet 50 mg PO DAILY sertraline 100 mg tablet 100 mg PO DAILY amlodipine 10 mg tablet 10 mg PO DAILY levothyroxine 50 mcg tablet 50 mcg PO DAILY hydroxyzine HCl 10 mg tablet 10 - 20 mg PO QID PRN (Reason: Anxiety) Discharge Orders: Discharge ED (Routine); Ordered 02/05/25 Ordered By: Alondra Johnson Referrals: Trudy Pedroza MD [Primary Care Provider, [facility]] Patient Instructions: Patient Portal & [facility] Instructions Activity Restrictions/Additional Instructions: Keep wound/laceration clean with warm soap and water twice daily. Monitor for signs of infection such as redness, swelling, increased pain, or drainage. Please seek medical re-evaluation if these occur. If you received sutures today these will need to be removed (unless you were told by the provider that they are absorbable). The provider should have discussed with you the length of time until removal-7 to 10 days. Case management should reach out to you to set you up with our orthopedic team. You also need to follow-up through Worker's Comp. You can speak to your HR department regarding this. Print Language: Mauritanian Coding Level of Care Code ED Supervisor [employer] for Kassandra Betancourt
[2025-02-05] MEDS: ceFAZolin 1,000 MG in water for injection-sterile 2.5 ML 2.5 MG IM (17:16)
[2025-02-05] MEDS: ondansetron 2 mg/ML SDV 2 mL 4 MG IM (17:16)
[2025-02-05] MEDS: tetanus-dipt-pertussis 0.5 mL SDV IM (17:17)
[2025-02-05 17:50] VITALS: BP 146/89; PULSE 82; O2SAT 99
--- NOTE | 2025-02-08 09:57 | DCPLANNER ---
messaged ortho for er f/u
== END 2025-02-05 17:51 | disposition home or self-care (01) ==
PROVIDERS: Emergency Provider Physician Assistant; PCP Family Medicine
DX: S61.422A Laceration with foreign body of left hand, initial encounter (principal); W31.89XA Contact with other specified machinery, initial encounter
CPT/HCPCS: 12002; 73130; 90471; 90715; 96372; 99284; J0690; J2405

== ENCOUNTER → 2025-02-14 14:53 | Outpatient (BNVA) | payer OTHER, SELFPAY | PROVIDERS: PCP Family Medicine; Visit Provider Physician Assistant | DX: S61.411A Laceration without foreign body of right hand, initial encounter (principal); W31.89XA Contact with other specified machinery, initial encounter | CPT/HCPCS: 73130 ==

== ENCOUNTER → 2025-02-27 11:08 | Outpatient (BNVA) | payer OTHER, SELFPAY | PROVIDERS: PCP Family Medicine; Visit Provider Student in an Organized Health Care Education/Training Program | DX: S61.412A Laceration without foreign body of left hand, initial encounter (principal); X58.XXXA Exposure to other specified factors, initial encounter | CPT/HCPCS: 73130 ==